=== PATIENT | male | born 1990 | race Two or more races ===

== ENCOUNTER 2021-04-08 08:58 | Emergency (ER) | payer OTHER ==
[~2021-04-08] VITALS: Ht 172.7 cm; Wt 83.0 kg
[2021-04-08] MEDS ORDERED: IBUPROFEN 600MG TABLET PO ONE (09:45)
[2021-04-08] MEDS ORDERED: IBUP-2029 MT (10:39)
[2021-04-08 10:48] VITALS: BP 136/96
== END 2021-04-08 10:50 | disposition home or self-care (01) ==
LOC: ER 08:58
DX: S00.83XA Contusion of other part of head, initial encounter (principal); S09.90XA Unspecified injury of head, initial encounter; Y35.893A Legal intervention involving other specified means, suspect injured, initial encounter; Y93.89 Activity, other specified; Y92.488 Other paved roadways as the place of occurrence of the external cause
CPT/HCPCS: 70486; 99285